=== PATIENT | male | born 1960 | race Hispanic/Latino ===

== ENCOUNTER 2018-09-02 13:41 | Emergency (ER) | payer MEDICARE ==
--- NOTE | 2018-09-02 13:50 | Emergency Department Report ---
Chief Complaint: Neuro Symptoms/Deficit Stated Complaint: POSSIBLE STROKE Time Seen by Provider: 09/02/18 13:45 - HPI History of Present Illness: LAST SEEN NORMAL LAST PM GOT UP GEN WEAKNESS THIS AM GOT ON BUS AND WAS TOO WEAK TO GET OFF - 0830 NO FOCAL NEURO DEF GEN WEAKNESS LONG PMH MR SEE CAREGIVER. RN TOLD NOT ACUTE EVENTS BUT SHE CALLED STROKE ALERT. MSE COMPLETED - Exam Vital Signs: Vital Signs 09/02/18 13:46 Pulse Rate 92 H Respiratory 18 Rate Blood Pressure 124/84 [Right] O2 Sat by Pulse 98 Oximetry MSE screening note: Focused history and physical exam performed. Due to findings the following was ordered: ED Disposition for MSE Condition: Stable
--- NOTE | 2018-09-02 13:54 | Emergency Department Report ---
HPI - General Chief Complaint: Neuro Symptoms/Deficit Time Seen by Provider: 09/02/18 13:45 - HPI HPI: Room 2 The patient is a 58-year-old male presenting with a chief complaint of difficulty ambulating. The patient's chief accountant states the patient's last normal Plon was approximately 19:00 last night. This morning the chief accountant states patient was having difficulty ambulating and he appeared to be dragging his right leg. The patient went to the primary physician's office who returns to the patient to the ED for evaluation for potential CVA. The patient has a history of MR and traumatic brain injury and does not speak. Location: [facility] Duration: [See above] Quality: Off-balance Severity: Moderate Modifying factors: [see above] Context: [see above] Mode of transportation: [not driving] ED Past Medical Hx - Past Medical History Hx Hypertension: Yes Hx Seizures: Yes Additional medical history: M.R, anemia, hyperthyroid,ILEUS - Surgical History Additional Surgical History: brain surgery - Family History Family history: no significant - Social History Smoking Status: Unknown if ever smoked Substance Use Type: None - Medications Home Medications: Home Medications Medication Instructions Recorded Confirmed Last Taken Type Alendronate Sodium [Binosto] 70 mg PO 1XW 07/13/13 09/02/18 07/26/13 08:00 Hist ory Ferrous Sulfate [Ferrous Sulfate 5 ml PO DAILY 07/13/13 09/02/18 07/26/13 08:00 History Oral Liq 300 Mg/5 Ml] Lisinopril [Zestril TAB] 10 mg PO DAILY 07/13/13 09/02/18 07/26/13 08:00 History Multivitamin [Multi-Vitamin Daily] 1 tab PO DAILY 07/13/13 09/02/18 07/26/13 08:00 History [place]-3 Fatty Acids [[place]-3] 1,000 mg PO TID 07/13/13 09/02/18 07/26/13 08:00 History Psyllium Husk/Aspartame [Metamucil 1 pkg PO DAILY 07/13/13 09/02/18 07/26/13 08:00 History Powder] methIMAzole [Tapazole] 5 mg PO DAILY 07/13/13 09/02/18 07/26/13 08:00 History Tamsulosin [Flomax] 0.4 mg PO QDAY 09/02/18 09/02/18 Unknown History ED Review of Systems ROS: Stated complaint: POSSIBLE STROKE Other details as noted in HPI Comment: Unobtainable due to pts medical conditions Physical Exam - Physical Exam Vital Signs: Vital Signs 09/02/18 13:46 Pulse Rate 92 H Respiratory 18 Rate Blood Pressure 124/84 [Right] O2 Sat by Pulse 98 Oximetry Physical Exam: GENERAL: The patient is a well-nourished male lying on stretcher not appearing to be in acute distress HEENT: Normocephalic. Extraocular motions are intact. Patient has moist mucous membranes. NECK: Supple. Trachea midline CHEST/LUNGS: Clear to auscultation. There is no respiratory distress noted. HEART/CARDIOVASCULAR: Regular. There is no tachycardia. There is no gallop rub or murmur. ABDOMEN: Abdomen is soft, nontender. Patient has normal bowel sounds. There is no abdominal distention. SKIN: There is no rash. There is no edema. There is no diaphoresis. NEURO: The patient is awake. The patient does not follow commands. The patient is observed moving all 4 extremities. The patient is observed taking 2-3 steps while there is staff on either side of him as a precaution MUSCULOSKELETAL: There is no evidence of acute injury. ED Course Vital Signs 09/02/18 13:46 Pulse Rate 92 H Respiratory 18 Rate Blood Pressure 124/84 [Right] O2 Sat by Pulse 98 Oximetry - Consultations Consultation #1: 09/02/18 14:32 [facility] transfer line called 09/02/18 14:39 Case discussed with transfer line. Will call back with neurosurgeon 09/02/18 15:07 Case discussed with [facility] neurosurgeon Dr. Crandall- will accept patient in transfer to the ICU ED Medical Decision Making - Lab Data Result diagrams: 09/02/18 14:04 09/02/18 14:04 Laboratory Tests 09/02/18 09/02/18 09/02/18 14:04 14:04 14:04 WBC 6.2 RBC 3.80 Hgb 11.2 L Hct 33.6 L MCV 89 MCH 30 MCHC 34 RDW 15.1 Plt Count 288 Lymph % (Auto) 23.3 Door % (Auto) 8.6 H Eos % (Auto) 6.2 H Baso % (Auto) 2.8 H Lymph # 1.4 Door # 0.5 Eos # 0.4 Baso # 0.2 H Seg Neutrophils % 59.1 Seg Neutrophils # 3.7 PT 13.1 INR 0.94 APTT 29.5 Thrombin Time 16.7 Sodium 143 Potassium 5.1 H Chloride 108.6 H Carbon Dioxide 26 Anion Gap 14 BUN 31 H Creatinine 1.6 H Estimated GFR 44 BUN/Creatinine Ratio 19 Glucose 114 H Calcium 10.0 Total Bilirubin 0.30 AST 26 ALT 21 Alkaline Phosphatase 47 Total Protein 7.8 Albumin 4.1 Albumin/Globulin Ratio 1.1 - EKG Data -: EKG Interpreted by Ia EKG shows normal: sinus rhythm Rate: normal - EKG Data When compared to previous EKG there are: previous EKG unavailable Interpretation: other (no ischemic changes seen) - Radiology Data Radiology results: report reviewed (CT head), image reviewed (CT head) [facility] [address] [place] [address] Cat Scan Report Signed Patient: HAMILTON CAMPA MR#: [id number] : 1960 Acct:[id number] Age/Sex: 58 / M ADM Date: 09/02/18 Loc: ED Attending Dr: Willy gong Physician: RJ LEE MD Date of Service: 09/02/18 Procedure(s): CT head/brain wo con Accession Number(s): [id number] cc: RJ LEE MD HEAD CT WITHOUT CONTRAST INDICATION: Neurologic deficits less than 6 hours or symptoms present upon awakening. 98N. COMPARISON: None similar. FINDINGS: Noncontrast head CT demonstrates a large, approximately 5.8 x 4.5 cm heterogeneously calcified left frontal lobe mass with adjacent, predominantly left frontal lobe white matter hypodense edema with effacement/mass effect upon the lateral ventricles, left more than right. Approximately 1.3 cm left to right midline shift also noted. No abnormal extra-axial fluid collections. Few small right basal ganglia chronic/lacunar infarcts. Third and fourth ventricles maintain near midline. Grossly normal posterior fossa with preserved basilar cisterns. Normal eye globe contours, though lenses not clearly seen/possible cataract surgery. Aplastic/hypoplastic frontal sinuses. Mild right ethmoid sinusitis ante riorly. Mild to moderate right and mild left maxillary sinus mucosal thickening. Clear remainder aerated paranasal sinuses and temporal bone air cells with mastoid tips not well pneumatized, more so on the right. A persistent metopic suture incidentally noted. Prior right craniotomy changes. Grossly normal scalp. Slight nasal septal deviation. Approximately 4 mm leftward nasal septal spur noted. Few small radiopaque dental fillings and missing teeth. CONCLUSION: 1. Large heterogeneously calcified left frontal lobe mass/possible meningioma with surrounding hypodense white matter edema and mass effect with approximately 1.3 cm left to right midline shift, as described. No evidence of acute intracranial hemorrhage. 2. Various other findings, including sinus disease and prior right- sided craniotomy changes, as above. MRI with contrast would be further helpful in this setting and is more sensitive for detection of acute infarct. I phoned the above results to Dr. Lee in the ER, 2:10 PM, 09/02/2018. Thank you for the opportunity to participate in this patient's care. Transcribed By: RS Dictated By: FIDELINA GUADARRAMA MD Electronically Authenticated By: FIDELINA GUADARRAMA MD Signed Date/Time: 09/02/181426 DD/ 09 TD/TT: 09/02/18 142 Critical care attestation.: If time is entered above; I have spent that time in minutes in the direct care of this critically ill patient, excluding procedure time. ED Disposition Clinical Impression: Meningioma Disposition: DC/TX-70 ANOTHER TYPE HLTHCARE Is pt being admited?: No Does the pt Need Aspirin: No Condition: Fair Time of Disposition: 18:29 (awaiting transport)
[2018-09-02 14:11] LABS: Basophils # (Auto) 0.2 K/mm3 (0.0-0.1); Basophils % (Auto) 2.8 % (0.0-1.8); Eosinophils # (Auto) 0.4 K/mm3 (0.0-0.4); Eosinophils % (Auto) 6.2 % (0.0-4.3); Hematocrit 33.6 % (35.5-45.6); Hemoglobin 11.2 gm/dl (11.8-15.2); Lymphocytes # (Auto) 1.4 K/mm3 (1.2-5.4); Lymphocytes % (Auto) 23.3 % (13.4-35.0); Mean Corpuscular HGB Conc 34 % (32-34); Mean Corpuscular Volume 89 fl (84-94); Monocytes # (Auto) 0.5 K/mm3 (0.0-0.8); Monocytes % (Auto) 8.6 % (0.0-7.3); Platelet Count 288 K/mm3 (140-440); Red Cell Distribution Width 15.1 % (13.2-15.2)
--- NOTE | 2018-09-02 14:13 | Emergency Department Report ---
ED Neuro Deficit HPI - General Chief Complaint: Neuro Symptoms/Deficit Stated Complaint: POSSIBLE STROKE Time Seen by Provider: 09/02/18 13:45 Source: family Mode of arrival: Ambulatory Limitations: Altered Mental Status, Physical Limitation - Related Data Home Medications: Home Medications Medication Instructions Recorded Confirmed Last Taken Alendronate Sodium [Binosto] 70 mg PO 1XW 07/13/13 05/07/14 07/26/13 08:00 Dextran 70/Hypromellose 1 drop OP DAILY 07/13/13 05/07/14 07/26/13 08:00 [Artificial Tears] Ferrous Sulfate [Ferrous Sulfate 5 ml PO DAILY 07/13/13 05/07/14 07/26/13 08:00 Oral Liq 300 Mg/5 Ml] Lisinopril [Zestril TAB] 10 mg PO DAILY 07/13/13 05/07/14 07/26/13 08:00 Multivitamin [Multi-Vitamin Daily] 1 tab PO DAILY 07/13/13 05/07/14 07/26/13 08:00 [place]-3 Fatty Acids [[place]-3] 1,000 mg PO TID 07/13/13 05/07/14 07/26/13 08:00 Psyllium Husk/Aspartame [Metamucil 1 pkg PO DAILY 07/13/13 05/07/14 07/26/13 08:00 Powder] levETIRAcetam [Keppra ORAL LIQ] 7.5 ml PO BID 07/13/13 05/07/14 07/26/13 08:00 methIMAzole [Tapazole] 5 mg PO DAILY 07/13/13 05/07/14 07/26/13 08:00 Acetaminophen [Acetaminophen TAB] 325 mg PO Q6HR PRN 07/16/13 05/07/14 07/26/13 08:00 Tacrolimus [Protopic] 30 gm .ROUTE PRN PRN 07/16/13 05/07/14 07/26/13 08:00 Previous Rx's Medication Instructions Recorded Last Taken Type Docusate Sodium [Colace CAP] 100 mg PO BID PRN #20 capsule 07/14/13 07/26/13 08:00 Rx Promethazine [Phenergan TAB] 25 mg PO Q6H PRN #20 tablet 07/14/13 07/26/13 08:00 Rx Pantoprazole [Protonix TAB] 20 mg PO BID #60 tablet. 07/18/13 07/26/13 08:00 Rx levoFLOXacin [Levaquin TAB] 500 mg PO QDAY #7 tablet 07/18/13 07/26/13 08:00 Rx metroNIDAZOLE [Flagyl TAB] 250 mg PO Q8HR #21 tablet 07/18/13 07/26/13 08:00 Rx Ondansetron [Zofran Odt] 8 mg PO TID PRN #7 tab.rapdis 07/27/13 Unknown Rx metroNIDAZOLE [Flagyl TAB] 500 mg PO Q8HR #42 tablet 05/10/14 Unknown Rx Allergies/Adverse Reactions: Allergies Allergy/AdvReac Type Severity Reaction Status Date / Time cobalt [Conetoe] AdvReac Anaphylaxis Verified 07/13/13 22:38 phenylpropanolamine AdvReac Anaphylaxis Verified 07/13/13 22:38 pseudoephedrine AdvReac Anaphylaxis Verified 07/13/13 22:38 ED Review of Systems ROS: Stated complaint: POSSIBLE STROKE Other details as noted in HPI ED Past Medical Hx - Past Medical History Hx Hypertension: Yes Hx Congestive Heart Failure: No Hx Diabetes: No Hx Seizures: Yes Hx Asthma: No Hx COPD: No Additional medical history: M.R, anemia, hyperthyroid,ILEUS - Surgical History Additional Surgical History: brain surgery - Social History Smoking Status: Unknown if ever smoked - Medications Home Medications: Home Medications Medication Instructions Recorded Confirmed Last Taken Type Alendronate Sodium [Binosto] 70 mg PO 1XW 07/13/13 05/07/14 07/26/13 08:00 History Dextran 70/Hypromellose 1 drop OP DAILY 07/13/13 05/07/14 07/26/13 08:00 History [Artificial Tears] Ferrous Sulfate [Ferrous Sulfate 5 ml PO DAILY 07/13/13 05/07/14 07/26/13 08:00 History Oral Liq 300 Mg/5 Ml] Lisinopril [Zestril TAB] 10 mg PO DAILY 07/13/13 05/07/14 07/26/13 08:00 History Multivitamin [Multi-Vitamin Daily] 1 tab PO DAILY 07/13/13 05/07/14 07/26/13 08:00 History [place]-3 Fatty Acids [[place]-3] 1,000 mg PO TID 07/13/13 05/07/14 07/26/13 08:00 History Psyllium Husk/Aspartame [Metamucil 1 pkg PO DAILY 07/13/13 05/07/14 07/26/13 08:00 History Powder] levETIRAcetam [Keppra ORAL LIQ] 7.5 ml PO BID 07/13/13 05/07/14 07/26/13 08:00 History methIMAzole [Tapazole] 5 mg PO DAILY 07/13/13 05/07/14 07/26/13 08:00 History Docusate Sodium [Colace CAP] 100 mg PO BID PRN #20 capsule 07/14/13 05/07/14 08:00 Rx Promethazine [Phenergan TAB] 25 mg PO Q6H PRN #20 tablet 07/14/13 05/07/14 07/26/13 08:00 Rx Acetaminophen [Acetaminophen TAB] 325 mg PO Q6HR PRN 07/16/13 05/07/14 07/26/13 08:00 History Tacrolimus [Protopic] 30 gm .ROUTE PRN PRN 07/16/13 05/07/14 07/26/13 08:00 History Pantoprazole [Protonix TAB] 20 mg PO BID #60 tablet. 07/18/13 05/07/14 07/26/13 08:00 Rx levoFLOXacin [Levaquin TAB] 500 mg PO QDAY #7 tablet 07/18/13 05/07/14 07/26/13 08:00 Rx metroNIDAZOLE [Flagyl TAB] 250 mg PO Q8HR #21 tablet 07/18/13 05/07/14 07/26/13 08:00 Rx Ondansetron [Zofran Odt] 8 mg PO TID PRN #7 tab.rapdis 07/27/13 05/07/14 Unknown Rx metroNIDAZOLE [Flagyl TAB] 500 mg PO Q8HR #42 tablet 05/10/14 Unknown Rx ED Neuro Physical Exam - General Limitations: Altered Mental Status, Physical Limitation Suspected Stroke: No (related to mass seen on CT head) - NIHSS Assessment Interval: Baseline 1a. Level of Consciousness: alert/keenly responsive 1b. LOC Questions: answers no questions correctly 1c. LOC Commands: performs no tasks correctly 2. Best Gaze: normal 3. Visual: no visual loss 4. Facial Palsy: normal symmetrical movement 5b. Motor Arm Right: drift 5a. Motor Arm Left: drift 6a. Motor Leg Left: drift 6b. Motor Leg Right: drift 7. Limb Ataxia: absent 8. Sensory: normal 9. Best Language: mute/global aphasia 10. Dysarthria: mute/anarrthric 11. Extinction/Inattention: no abnormality Total Score: 13 Stroke Severity: Moderate Stroke ED Course Vital Signs 09/02/18 13:46 Pulse Rate 92 H Respiratory 18 Rate Blood Pressure 124/84 [Right] O2 Sat by Pulse 98 Oximetry - Lab Data Result diagrams: 09/02/18 14:04 Lab Results 09/02/18 Range/Units 14:04 WBC 6.2 (4.5-11.0) K/mm3 RBC 3.80 (3.65-5.03) M/mm3 Hgb 11.2 L (11.8-15.2) gm/dl Hct 33.6 L (35.5-45.6) % MCV 89 (84-94) fl MCH 30 (28-32) pg MCHC 34 (32-34) % RDW 15.1 (13.2-15.2) % Plt Count 288 (140-440) K/mm3 Lymph % (Auto) 23.3 (13.4-35.0) % Sullivan % (Auto) 8.6 H (0.0-7.3) % Eos % (Auto) 6.2 H (0.0-4.3) % Baso % (Auto) 2.8 H (0.0-1.8) % Lymph # 1.4 (1.2-5.4) K/mm3 Sullivan # 0.5 (0.0-0.8) K/mm3 Eos # 0.4 (0.0-0.4) K/mm3 Baso # 0.2 H (0.0-0.1) K/mm3 Seg Neutrophils % 59.1 (40.0-70.0) % Seg Neutrophils # 3.7 (1.8-7.7) K/mm3 - Medical Decision Making [facility] Date of Service: 09/02/18 Impression: Unsteady gait: etiology is likely related to left frontal large likely meningioma with midline shift. Possible due to mass effect vs seizure. - - - Not a tpa candidate due to: outside of time window and likely related to large meningioma not stroke Presentation is not suggestive of Large Vessel Occlusive Disease. Thrombectomy would not be recommended. Comments: JOHN: 8:00 Door time: 13:41 [employer] contacted: 13:52 [facility] at bedside: 13:58 NIHSS assessment time: 14:05 Recommendations: -Continue Keppra -Neurosurgical evaluation -Seizure precautions Discussed with ED MD Please call with questions Pratibha Trejo, [employer] #[phone] CC unsteady gait History of Present Illness 58 yo M with history of brain injury and seizures on Keppra who is non-verbal and does not follow commands at baseline but is able to walk independently. Today he was noted to not be able to get off the bus and walk independently at 8:45 for his day program. He was able to get on the bus at 8:00 per the business solutions consultant but he was not seen by his lens inserter who is providing history until 8:45 and she last saw him at 15:00 yesterday. He was taken to his PCP for the abhinav juarez who sent him to the ED to rule out stroke vs infectious process. Diagnostic: CT head: large left frontal likely meningioma with midline shift Exam: NIHSS score: 13 (baseline deficits) Medical Decision Making: - Extensive number of diagnosis or management options are considered above. - Extensive amount of complex data reviewed. - High risk of complication and/or morbidity or mortality are associated with differential diagnostic considerations above. - There may be Uncertain outcome and increased probability of prolonged functional impairment or high probability of severe prolonged functional impairment associated with some of these differential diagnosis. Medical Data Reviewed: 1.Data reviewed include clinical labs, radiology, Medical Tests; 2.Tests results discussed w/performing or interpreting physician; 3.Obtaining/reviewing old medical records; 4.Obtaining case history from another source; 5.Independent review of image, tracing or specimen. Patient was informed the Neurology Consult would happen via telehealth (remote video) and consented to receiving care in this manner. Critical care attestation.: If time is entered above; I have spent that time in minutes in the direct care of this critically ill patient, excluding procedure time. ED Disposition Clinical Impression: Meningioma Disposition: DC-09 OP ADMIT IP TO THIS HOSP Is pt being admited?: Yes Condition: Stable
[2018-09-02 14:22] LABS: INR 0.94 (0.87-1.13)
[2018-09-02 14:23] LABS: Partial Thromboplastin Time 29.5 Sec. (24.2-36.6); Thrombin Time 16.7 Sec. (15.1-19.6)
--- NOTE | 2018-09-02 14:28 | Cat Scan Report ---
HEAD CT WITHOUT CONTRAST INDICATION: Neurologic deficits less than 6 hours or symptoms present upon awakening. 98N. COMPARISON: None similar. FINDINGS: Noncontrast head CT demonstrates a large, approximately 5.8 x 4.5 cm heterogeneously calcified left frontal lobe mass with adjacent, predominantly left frontal lobe white matter hypodense edema with effacement/mass effect upon the lateral ventricles, left more than right. Approximately 1.3 cm left to right midline shift also noted. No abnormal extra-axial fluid collections. Few small right basal ganglia chronic/lacunar infarcts. Third and fourth ventricles maintain near midline. Grossly normal posterior fossa with preserved basilar cisterns. Normal eye globe contours, though lenses not clearly seen/possible cataract surgery. Aplastic/hypoplastic frontal sinuses. Mild right ethmoid sinusitis anteriorly. Mild to moderate right and mild left maxillary sinus mucosal thickening. Clear remainder aerated paranasal sinuses and temporal bone air cells with mastoid tips not well pneumatized, more so on the right. A persistent metopic suture incidentally noted. Prior right craniotomy changes. Grossly normal scalp. Slight nasal septal deviation. Approximately 4 mm leftward nasal septal spur noted. Few small radiopaque dental fillings and missing teeth. CONCLUSION: 1. Large heterogeneously calcified left frontal lobe mass/possible meningioma with surrounding hypodense white matter edema and mass effect with approximately 1.3 cm left to right midline shift, as described. No evidence of acute intracranial hemorrhage. 2. Various other findings, including sinus disease and prior right-sided craniotomy changes, as above. MRI with contrast would be further helpful in this setting and is more sensitive for detection of acute infarct. I phoned the above results to Dr. Coombs in the ER, 2:10 PM, 09/02/2018. Thank you for the opportunity to participate in this patient's care.
[2018-09-02 14:31] LABS: Albumin 4.1 g/dL (3.9-5)
[2018-09-02 20:20] VITALS: BP 135/87
== END 2018-09-02 20:20 | disposition other institution (70) ==
LOC: ED 13:41
DX: D32.9 Benign neoplasm of meninges, unspecified (principal); I10 Essential (primary) hypertension; Z86.2 Personal history of diseases of the blood and blood-forming organs and certain disorders involving the immune mechanism; E05.90 Thyrotoxicosis, unspecified without thyrotoxic crisis or storm; Z88.8 Allergy status to other drugs, medicaments and biological substances
CPT/HCPCS: 36415; 70450; 80053; 82962; 85025; 85610; 85670; 85730; 93005; 93010; 99285

== ENCOUNTER 2019-08-31 20:51 | Emergency (ER) | payer MEDICARE ==
[2019-08-31] MEDS ORDERED: levETIRAcetam 1000 MG/NS 0.75% 1,000 MG/100 ML BAG IV ONE (21:02)
--- NOTE | 2019-08-31 21:03 | Emergency Department Report ---
ED General Adult HPI - General Chief complaint: Seizure Stated complaint: SEIZURE Time Seen by Provider: 08/31/19 20:55 Source: family (History obtained from caregiver), EMS (Verbal report received from EMS. EMS documentation not available at time of chart dictation ), RN notes reviewed, old records reviewed Mode of arrival: Stretcher Limitations: Other (Patient not verbal) - History of Present Illness Initial comments: This is a 59-year-old gentleman, not known to myself previously, with a past medical history of seizure disorder, on Keppra, developmental delay, anemia, ileus, hypothyroidism, meningioma He is brought to the hospital by EMS for breakthrough seizure. Patient is nonverbal at baseline. As per collateral information obtained from his caregiver, no fever, cough, nausea, vomiting, diarrhea, urinary symptoms, no exposure to coronavirus, patient and caregiver are self quarantine and, the patient has been compliant with his medications. He apparently had a seizure today. He did not hit his head. There were no preceding symptoms. Patient has otherwise been in his baseline. His last seizure was in April. It is currently August. Patient himself is nonverbal, will follow some commands, but not all commands, and he himself cannot describe qualitative nature of his symptoms, exacerbating, relieving factors, or radiation of symptoms. His caregiver states that he appears to be coming back to baseline at this time. -: Sudden Radiation: other Quality: other Consistency: other Improves with: other Worsens with: other Associated Symptoms: other - Related Data Home Medications Medication Instructions Recorded Confirmed Last Taken Alendronate Sodium [Binosto] 70 mg PO 1XW 07/13/13 09/02/18 07/26/13 08:00 Ferrous Sulfate [Ferrous Sulfate 5 ml PO DAILY 07/13/13 09/02/18 07/26/13 08:00 Oral Liq 300 Mg/5 Ml] Multivitamin [Multi-Vitamin Daily] 1 tab PO DAILY 07/13/13 09/02/18 07/26/13 08:00 Fromberg-3 Fatty Acids [Fromberg-3] 1,000 mg PO TID 07/13/13 09/02/18 07/26/13 08:00 Psyllium Husk/Aspartame [Metamucil 1 pkg PO DAILY 07/13/13 09/02/18 07/26/13 08:00 Powder] lisinopriL [Zestril TAB] 10 mg PO DAILY 07/13/13 09/02/18 07/26/13 08:00 methIMAzole [Tapazole] 5 mg PO DAILY 07/13/13 09/02/18 07/26/13 08:00 Tamsulosin [Flomax] 0.4 mg PO QDAY 09/02/18 09/02/18 Unknown Previous Rx's Medication Instructions Recorded Last Taken Type Nitrofurantoin Henry/M-Cryst 100 mg PO Q12HR #14 capsule 08/31/19 Unknown Rx [Macrobid CAP] Allergies Allergy/AdvReac Type Severity Reaction Status Date / Time cobalt [Yreka] AdvReac Anaphylaxis Verified 07/13/13 22:38 phenylpropanolamine AdvReac Anaphylaxis Verified 07/13/13 22:38 pseudoephedrine AdvReac Anaphylaxis Verified 07/13/13 22:38 ED Review of Systems ROS: Stated complaint: SEIZURE Other details as noted in HPI Comment: As per caregiver Constitutional: denies: fever Eyes: denies: eye discharge ENT: denies: congestion Respiratory: denies: wheezing Gastrointestinal: denies: nausea, vomiting, diarrhea Genitourinary: denies: frequency Musculoskeletal: as per HPI Skin: as per HPI Neurological: as per HPI, other (History of seizure) ED Past Medical Hx - Past Medical History Hx Hypertension: Yes Hx Congestive Heart Failure: No Hx Diabetes: No Hx Seizures: Yes Hx Asthma: No Hx COPD: No Additional medical history: M.R, anemia, hyperthyroid,ILEUS - Surgical History Additional Surgical History: brain surgery - Social History Smoking Status: Unknown if ever smoked Substance Use Type: None - Medications Home Medications: Home Medications Medication Instructions Recorded Confirmed Last Taken Type Alendronate Sodium [Binosto] 70 mg PO 1XW 07/13/13 09/02/18 07/26/13 08:00 History Ferrous Sulfate [Ferrous Sulfate 5 ml PO DAILY 07/13/13 09/02/18 07/26/13 08:00 History Oral Liq 300 Mg/5 Ml] Multivitamin [Multi-Vitamin Daily] 1 tab PO DAILY 07/13/13 09/02/18 07/26/13 08:00 History Fromberg-3 Fatty Acids [Fromberg-3] 1,000 mg PO TID 07/13/13 09/02/18 07/26/13 08:00 History Psyllium Husk/Aspartame [Metamucil 1 pkg PO DAILY 07/13/13 09/02/18 07/26/13 08:00 History Powder] lisinopriL [Zestril TAB] 10 mg PO DAILY 07/13/13 09/02/18 07/26/13 08:00 History methIMAzole [Tapazole] 5 mg PO DAILY 07/13/13 09/02/18 07/26/13 08:00 History Tamsulosin [Flomax] 0.4 mg PO QDAY 09/02/18 09/02/18 Unknown History Nitrofurantoin Henry/M-Cryst 100 mg PO Q12HR #14 capsule 08/31/19 Unknown Rx [Macrobid CAP] ED Physical Exam - General Limitations: Other (Patient nonverbal. Patient follows commands.) General appearance: in no apparent distress - Head Head exam: Present: atraumatic, normocephalic - Eye Eye exam: Present: normal appearance, PERRL - ENT ENT exam: Present: normal exam, mucous membranes moist, normal external ear exam - Neck Neck exam: Present: normal inspection, full ROM. Absent: tenderness, meningismus - Respiratory Respiratory exam: Present: decreased breath sounds. Absent: respiratory distress - Cardiovascular Cardiovascular Exam: Present: normal rhythm, tachycardia, normal heart sounds. Absent: systolic murmur, diastolic murmur, rubs, gallop - GI/Abdominal GI/Abdominal exam: Present: soft. Absent: distended, tenderness, guarding, rebound, rigid, pulsatile mass - Rectal Rectal exam: Present: deferred - Extremities Exam Extremities exam: Present: normal inspection, full ROM, other (2+ pulses noted in the bilateral upper and lower extremities. There is no palpable cord. negative Homans sign. Muscular compartments are soft. The pelvis is stable.). Absent: pedal edema, calf tenderness - Back Exam Back exam: Present: normal inspection. Absent: tenderness, CVA tenderness (R), CVA tenderness (L), paraspinal tenderness, vertebral tenderness - Neurological Exam Neurological exam: Present: other (Patient is nonverbal. Patient closes his eyes tightly when I attempt to examine him. There is no facial droop. He does move 4 extremities. Caregiver states he appears to be back to baseline.) - Psychiatric Psychiatric exam: Present: normal affect, normal mood - Skin Skin exam: Present: warm, dry, intact, normal color. Absent: rash ED Course Vital Signs 08/31/19 08/31/19 21:01 23:15 Temperature 99.5 F Pulse Rate 110 H 90 Respiratory 12 12 Rate Blood Pressure 127/88 111/76 [left arm] O2 Sat by Pulse 98 98 Oximetry - Reevaluation(s) Reevaluation #1: 08/31/19 21:28 Differential diagnosis, including but not limited to: Breakthrough seizure, pneumonia, urinary tract infection, intracranial lesion, electrolyte derangement Assessment and plan: 59-year-old gentleman, nonverbal, history of meningioma, back to baseline as per caregiver, who is afebrile with reassuring vital signs at this time, improving tachycardia, with history of breakthrough seizure. Check basic laboratory studies, urinalysis, EKG, CT scan of the brain, reassess. We will give the patient fluids, and loaded with 1 g of Keppra. Reevaluation #2: 08/31/19 21:29 No coronavirus risk factors as per caregiver Reevaluation #3: 08/31/19 23:07 CT scan of the brain negative for acute disease, shows chronic findings, and postsurgical changes in 2019, which are expected. Reevaluation #4: 08/31/19 23:29 Patient resting comfortably, and in no acute distress. CT scan of the brain negative for acute findings. Urinalysis reviewed and appreciated. I went back and discussed the patient's laboratory findings, EKG, radiology studies with his caregiver. He is suitable for discharge at this point in time, he will be started empirically on Macrobid, his caregiver feels comfortable to take him home. Return precautions are reviewed. ED Medical Decision Making - Lab Data Result diagrams: 08/31/19 21:06 08/31/19 21:06 Vital Signs 08/31/19 21:01 Temperature 99.5 F Pulse Rate 110 H Respiratory 12 Rate Blood Pressure 127/88 [left arm] O2 Sat by Pulse 98 Oximetry Lab Results 08/31/19 Range/Units 21:06 Hgb 11.1 L (11.8-15.2) gm/dl Hct 33.5 L (35.5-45.6) % Plt Count 288 (140-440) K/mm3 Vital Signs 08/31/19 21:01 Temperature 99.5 F Pulse Rate 110 H Respiratory 12 Rate Blood Pressure 127/88 [left arm] O2 Sat by Pulse 98 Oximetry Lab Results 08/31/19 08/31/19 08/31/19 Range/Units 21:06 21:06 21:06 Hgb 11.1 L (11.8-15.2) gm/dl Hct 33.5 L (35.5-45.6) % Plt Count 288 (140-440) K/mm3 PT 13.1 (12.2-14.9) Sec. INR 0.98 (0.87-1.13) Sodium 141 (137-145) mmol/L Potassium 4.7 (3.6-5.0) mmol/L Chloride 105.4 (98-107) mmol/L Carbon Dioxide 19 L (22-30) mmol/L Anion Gap 21 mmol/L BUN 24 H (9-20) mg/dL Creatinine 1.6 H (0.8-1.5) mg/dL Estimated GFR 44 ml/min BUN/Creatinine Ratio 15 % Glucose 88 (75-100) mg/dL Calcium 10.1 (8.4-10.2) mg/dL Magnesium (1.7-2.3) mg/dL Total Bilirubin 0.30 (0.1-1.2) mg/dL AST 24 (5-40) units/L ALT 25 (7-56) units/L Alkaline Phosphatase 60 (35-129) units/L Total Creatine Kinase (55-170) units/L Total Protein 7.7 (6.3-8.2) g/dL Albumin 4.1 (3.9-5) g/dL Albumin/Globulin Ratio 1.1 % 08/31/19 Range/Units 21:06 Hgb (11.8-15.2) gm/dl Hct (35.5-45.6) % Plt Count (140-440) K/mm3 PT (12.2-14.9) Sec. INR (0.87-1.13) Sodium (137-145) mmol/L Potassium (3.6-5.0) mmol/L Chloride (98-107) mmol/L Carbon Dioxide (22-30) mmol/L Anion Gap mmol/L BUN (9-20) mg/dL Creatinine (0.8-1.5) mg/dL Estimated GFR ml/min BUN/Creatinine Ratio % Glucose (75-100) mg/dL Calcium (8.4-10.2) mg/dL Magnesium 2.00 (1.7-2.3) mg/dL Total Bilirubin (0.1-1.2) mg/dL AST (5-40) units/L ALT (7-56) units/L Alkaline Phosphatase (35-129) units/L Total Creatine Kinase 166 (55-170) units/L Total Protein (6.3-8.2) g/dL Albumin (3.9-5) g/dL Albumin/Globulin Ratio % - EKG Data -: EKG Interpreted by Me EKG shows normal: sinus rhythm Rate: tachycardia - EKG Data 08/31/19 22:29 This is a sinus tachycardia, low voltage, Q waves in the inferior leads, motion artifact, not a STEMI. - Radiology Data Radiology results: pending, report reviewed, image reviewed interpreted by me: X-ray of the chest is negative for acute disease. Poor inspiratory effort. Critical care attestation.: If time is entered above; I have spent that time in minutes in the direct care of this critically ill patient, excluding procedure time. ED Disposition Clinical Impression: History of seizure Disposition: DC-01 TO HOME OR SELFCARE Is pt being admited?: No Does the pt Need Aspirin: No Condition: Stable Additional Instructions: Take the antibiotics as directed. Continue current medications otherwise. Cultures were sent today, and results will be available in the next 3 to 5 days. Please have your primary care doctor contact the medical records department to obtain culture results. Please follow-up with your primary care doctor or neurologist within the next 7 to 10 days. Patient should not drive, operate motor vehicles or make important decisions until cleared to do so by his primary care doctor or neurologist. Please return to the emergency room right away with new, worsened or different symptoms, or symptoms not present on the initial emergency room evaluation. Referrals: SCOTT MILLER MD [Staff Physician] - 7-10 days SHANNEN ARROYO MD [Staff Physician] - 7-10 days
[2019-08-31] MEDS ORDERED: LORazepam 2 MG/ML VIAL IV STA (21:16)
[2019-08-31 21:18] LABS: Hematocrit 33.5 % (35.5-45.6); Hemoglobin 11.1 gm/dl (11.8-15.2)
[2019-08-31] MEDS ORDERED: SODIUM CHLORIDE 0.9% 250ML 250 ML IV ONE (21:27)
[2019-08-31 21:29] LABS: INR 0.98 (0.87-1.13)
[2019-08-31 21:38] LABS: Albumin 4.1 g/dL (3.9-5); Calcium 10.1 mg/dL (8.4-10.2)
--- NOTE | 2019-08-31 21:56 | XRay Report ---
CHEST 1 VIEW INDICATION: sz ams. COMPARISON: None FINDINGS: SUPPORT DEVICES: None. HEART / MEDIASTINUM: No significant abnormality. LUNGS / PLEURA: Prominent bronchovascular markings. No significant pulmonary or pleural abnormality. No pneumothorax. ADDITIONAL FINDINGS: IMPRESSION: 1. No acute cardiopulmonary disease Signer Name: Dann Mitchell MD Signed: 08/31/2019 9:52 PM Workstation Name: [id number]
--- NOTE | 2019-08-31 22:58 | Cat Scan Report ---
CT HEAD/BRAIN WO CON INDICATION / CLINICAL INFORMATION: Seizure. History of meningioma. TECHNIQUE: All CT scans at this location are performed using CT dose reduction for ALARA by means of automated e xposure control. COMPARISON: 09/02/18. FINDINGS: A large hyperdense mass in the left frontoparietal region with associated vasogenic edema and mass ef fect has been removed since the prior study. There are bilateral craniotomy defects. There is residua l focal encephalomalacia in the left frontoparietal region without residual mass effect. There is mild generalized cerebral atrophy. There are mild small vessel ischemic changes in the white matter and gangliocapsular regions. No new focal lesion or mass effect is seen. There is no evidence of intracranial hemorrhage or acute major vessel occlusion. There is chronic right maxillary and anand ateral ethmoid sinusitis. IMPRESSION: Interval craniotomy since 09/02/18 with localized residual encephalomalacia in the left f rontoparietal region. No new acute abnormality. Signer Name: Tyler Finley MD Signed: 08/31/2019 10:53 PM Workstation Name: [id number]
[2019-08-31 23:19] LABS: Bacteria,Urine 1+ /HPF (Negative); Bilirubin,Urine NEG (Negative); Blood,Urine SM (Negative); Color,Urine Yellow (Yellow); Mucus,Urine FEW /HPF; Protein,Urine <15 mg/dL mg/dL (Negative); Urobilinogen,Urine < 2.0 mg/dL (<2.0)
[2019-09-01 00:36] VITALS: BP 106/63
== END 2019-09-01 | disposition home or self-care (01) ==
LOC: ED 20:51
DX: G40.909 Epilepsy, unspecified, not intractable, without status epilepticus (principal); I10 Essential (primary) hypertension; Z98.890 Other specified postprocedural states; Z79.899 Other long term (current) drug therapy; Z88.8 Allergy status to other drugs, medicaments and biological substances
CPT/HCPCS: 36415; 70450; 71045; 80053; 81001; 82550; 83735; 85014; 85018; 85049; 85610; 87086; 93005; 93010; 96374; 96375; 99285; J1953; J2060; J7050